=== PATIENT | male | born 1950 | race Caucasian/White ===

== ENCOUNTER 2019-06-17 10:45 | Emergency (ER) | payer MEDICARE, BC ==
[2019-06-17 10:58] VITALS: BP 160/93
--- NOTE | 2019-06-17 11:14 | UC ---
Back Pain HPI - HPI Summary HPI Summary: Patient is a 68-year-old male, history of hypertension, BPH, obesity, here with flank pain. Patient's had 3 weeks of left lower flank pain that radiates into his left testicle. Patient's pain is worse with sitting still and improves with movement. Patient's pain is constant with episodes of worsening pain. Patient's never had pain at this point for. Patient has no fever, chills, vomiting, diarrhea, constipation, weakness, saddle anesthesia, bowel/bladder dysfunction. Patient did have dysuria this morning. Patient has no hematuria. Medications reviewed - History of Current Complaint Chief Complaint: UCGU Stated Complaint: LOWER BACK PAIN Time Seen by Provider: 06/17/19 11:00 Hx Obtained From: Patient Onset/Duration: Gradual Onset Timing: Constant Severity Initially: Mild Severity Currently: Severe Pain Intensity: 9 - Allergies/Home Medications Allergies/Adverse Reactions: Allergies Allergy/AdvReac Type Severity Reaction Status Date / Time No Known Allergies Allergy Verified 06/17/19 10:58 Home Medications: Home Medications Atorvastatin* [Lipitor*] 10 mg PO 1700 06/17/19 [History Confirmed 06/17/19] Terazosin CAP* [Hytrin CAP*] 10 mg PO BEDTIME 06/17/19 [History Confirmed ] PMH/Surg Hx/FS Hx/Imm Hx Previously Healthy: Yes - Surgical History Surgical History: Yes Surgery Procedure, Year, and Place: NO SURGERY TO SINUSES; PARATHYROID GLANDS REMOVED 7 OR 8 YRS AGO DONE AT [facility]; BILAT KNEE SURGERIES ACL, PCL AND MENISCUS REPAIRS DONE AT [address] [place] [address]; 3 MORE SX DONE IN [facility] IN 2003, 2004, AND 2006. TONSILLECTOMY A CHILD. CATARACT SX 2013 DONE AT [facility] BY DR KAY. - Family History Known Family History: Positive: Hypertension - Social History Alcohol Use: Weekly Alcohol Amount: 5 drinks per week Substance Use Type: None Smoking Status (MU): Former Smoker Type: Cigars Amount Used/How Often: OCCASIONAL CIGARS Have You Smoked in the Last Year: Yes When Did the Patient Quit Smoking/Using Tobacco: 2nd week June 2016 - Immunization History Most Recent Influenza Vaccination: 2014 Most Recent Tetanus Shot: UTD Review of Systems All Other Systems Reviewed And Are Negative: Yes Constitutional: Negative: Fever, Chills ENT: Negative: Sore Throat Respiratory: Negative: Shortness Of Breath, Cough Cardiovascular: Negative: Chest Pain Gastrointestinal: Negative: Abdominal Pain, Vomiting, Diarrhea Genitourinary: Positive: Dysuria. Negative: Hematuria, Frequency Physical Exam - Summary Physical Exam Summary: A+Ox3, no distress Eyes: Conjunctiva Clear, PERRL. EOM intact and full ENT: Hearing grossly normal TM x 2 clear, moist, uvula midline, no exudate, no erythema Neck: Positive: Supple Respiratory: Positive: No respiratory distress, No accessory muscle use + CTA throughout no w/r Cardiovascular: RRR nl s1, s2 no m/r CBT <2 sec abd soft + BS nt/nd no guarding, no distension Musculoskeletal Exam: Left lower flank tenderness with no abdominal tenderness. No CVA tenderness. Full strength in the lower extremities. Neurological: Positive: Alert, + sensation throughout Psychological: Positive: Normal Response To Family Skin: no rash, no ecchymosis Triage Information Reviewed: Yes Vital Signs: Initial Vital Signs Temp 98 F 06/17/19 10:52 Pulse 98 06/17/19 10:52 Resp 17 06/17/19 10:52 BP 160/93 06/17/19 10:52 Pulse Ox 100 06/17/19 10:52 Back Pain Course/Dx - Course Course Of Treatment: Patient is here with 3 weeks of left flank pain and one episode of dysuria this morning. Patient had a negative UA for infection and his urine was sent for culture. Patient had a CT scan which showed no evidence of nephrolithiasis or AAA. Patient likely suffering from UTI versus muscle strain. Patient has no red flag symptoms of back pain and does not need an emergent MRI. Patient was treated with antibiotics and prescribed a muscle relaxant. He was instructed to follow-up with his primary care doctor as soon as possible. - Differential Dx/Diagnosis Differential Diagnosis/HQI/PQRI: Aneurysm, Compressive Cord Syndrome, Epidural Abscess, Fracture, Herniated Disc, Other - Nephrolithiasis, UTI Provider Diagnosis: Left flank pain, Complicated UTI (urinary tract infection) Discharge - Sign-Out/Discharge Documenting (check all that apply): Patient Departure All imaging exams completed and their final reports reviewed: Yes - Discharge Plan Condition: Stable Disposition: HOME Prescriptions: Cyclobenzaprine TAB* [Flexeril 10 MG TAB*] 10 mg PO BID PRN #10 tab PRN Reason: Pain - Severe Sulfamethox/Trimethoprim DS* [Bactrim DS 800/160 TAB*] 1 tab PO BID 7 Days #14 tab Patient Education Materials: Urinary Tract Infection in Men (ED), Low Back Strain (ED) Referrals: Niya Javier MD [Primary Care Provider] - Additional Instructions: Please call your urologist for followup Please take your antibiotics Please take Motrin and Tylenol for pain Please take the prescribed muscle relaxant at night if needed for pain Please do not take a muscle relaxant prior to driving or operating heavy machinery Please return if you have fever, difficulty going to the bathroom, blood in your urine, worsening symptoms - Billing Disposition and Condition Condition: STABLE Disposition: Home
[2019-06-17] MEDS ORDERED: Acetaminophen TAB* 325 MG PO ONE (12:11)
[2019-06-17] MEDS ORDERED: Ibuprofen TAB* 600 MG PO ONE (12:11)
== END 2019-06-17 12:25 | disposition home or self-care (01) ==
LOC: UCEAST 10:45
DX: N39.0 Urinary tract infection, site not specified (principal); R10.9 Unspecified abdominal pain; Z87.891 Personal history of nicotine dependence
CPT/HCPCS: 74176; 81002; 87086; 99212; A9270-GY; G0463

== ENCOUNTER 2019-09-04 11:44 | Emergency (ER) | payer MEDICARE, BC ==
[2019-09-04 12:54] VITALS: BP 124/85
--- NOTE | 2019-09-04 13:24 | UC ---
Skin Complaint HPI - HPI Summary HPI Summary: Pt presents to requesting doxy for a tick bite to left side. Pt states thinks tick was present 1-2 days. states was engorged and removed alive. no pain. Pt states in past PCP gives doxy. No fever, chills not immunocompromised medictions reviewed - History of Current Complaint Chief Complaint: UCSkin Time Seen by Provider: 09/04/19 13:21 Stated Complaint: TICK BITE Hx Obtained From: Patient, Family/Activities Volunteer Pain Intensity: 0 - Allergy/Home Medications Allergies/Adverse Reactions: Allergies Allergy/AdvReac Type Severity Reaction Status Date / Time No Known Allergies Allergy Verified 09/04/19 12:47 PMH/Surg Hx/FS Hx/Imm Hx Previously Healthy: Yes - Surgical History Surgical History: Yes Surgery Procedure, Year, and Place: NO SURGERY TO SINUSES; PARATHYROID GLANDS REMOVED 7 OR 8 YRS AGO DONE AT [facility]; BILAT KNEE SURGERIES ACL, PCL AND MENISCUS REPAIRS DONE AT [address] [place] [address]; 3 MORE SX DONE IN [facility] IN 2003, 2004, AND 2006. TONSILLECTOMY A CHILD. CATARACT SX 2013 DONE AT [place] BY DR KAY. Rotator cuff 2014 - Family History Known Family History: Positive: Hypertension, Non-Contributory - Social History Occupation: Retired Lives: With Family Alcohol Use: Weekly Alcohol Amount: 5 drinks per week Substance Use Type: None Smoking Status (MU): Former Smoker Type: Cigars Amount Used/How Often: OCCASIONAL CIGARS Have You Smoked in the Last Year: Yes When Did the Patient Quit Smoking/Using Tobacco: June 2016 - Immunization History Most Recent Influenza Vaccination: 2014 Most Recent Tetanus Shot: UTD Review of Systems All Other Systems Reviewed And Are Negative: Yes Skin: Positive: Other - tick bite wound Physical Exam - Summary Physical Exam Summary: Vital Signs Reviewed: Yes A+Ox3, no distress Eyes: Conjunctiva Clear ENT: Hearing grossly normal neck: supple Respiratory: Positive: No respiratory distress, No accessory muscle use Cardiovascular: skin color reflect adequate perfusion Musculoskeletal Exam: SKELTON x 4 without difficulty Neurological: Positive: Alert, ambulatory without difficulty Psychological: Positive: Normal Response To proivder Skin: Positive: no rash, no ecchymosis left mid scapuluar line 1cm area of erythema with central puncture -under magnification for retained fb no pain Triage Information Reviewed: Yes Vital Signs: Initial Vital Signs Temp 97.6 F 10/26/19 12:49 Pulse 88 09/04/19 12:49 Resp 16 09/04/19 12:49 BP 124/85 09/04/19 12:49 Pulse Ox 98 09/04/19 12:49 Course/Dx - Course Course Of Treatment: pt here with who removed an engorged tick from left upper back earlier today. states was present 1-2 days no pain no sx VSS no retained fb, local irritation will give prophylaxis doxy pt comfortable and in agreement with plan - Diagnoses Provider Diagnosis: Tick bite Discharge ED - Sign-Out/Discharge Documenting (check all that apply): Patient Departure All imaging exams completed and their final reports reviewed: No Studies - Discharge Plan Condition: Stable Disposition: HOME Patient Education Materials: Tick Bite (ED) Referrals: Niya Javier MD [Primary Care Provider] - Additional Instructions: Keep area clean and dry Check yourself daily for ticks after you have been working in the [place] Contact your doctor or return with questions or concerns Approach to prophylaxis : According to the Infectious Diseases Society of [place] (IDSA) guidelines that recommend antibiotic prophylaxis only in patients who meet all of the following criteria: 1. Attached tick identified as an adult or nymphal I. scapularis tick (deer tick). 2. Tick is estimated to have been attached for 36 hours (by degree of engorgement or time of exposure). 3. Prophylaxis is begun within 72 hours of tick removal. Local rate of infection of ticks with B. burgdorferi is 20 percent if attached for over 48 hours (these rates of infection have been shown to occur in parts of [place], parts of the [facility], and parts of [place] and [place]). you were given a prophylatic dose of doxycycline at today's visit. Contact your doctor or return with questions or concerns - Billing Disposition and Condition Condition: STABLE Disposition: Home
[2019-09-04] MEDS ORDERED: DOXYcycline CAP(*) 100 MG PO ONE (13:30)
== END 2019-09-04 13:37 | disposition home or self-care (01) ==
LOC: UCEAST 11:44
DX: S20.462A Insect bite (nonvenomous) of left back wall of thorax, initial encounter (principal); W57.XXXA Bitten or stung by nonvenomous insect and other nonvenomous arthropods, initial encounter; Y92.9 Unspecified place or not applicable; Z87.891 Personal history of nicotine dependence
CPT/HCPCS: 99212; A9270-GY; G0463

== ENCOUNTER 2019-11-26 11:36 | Emergency (ER) | payer MEDICARE, BC ==
--- OUTSIDE RECORDS SUMMARY | 2019-11-26 11:42 | XMS REPORT | Continuity of Care Document ---
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 Onset: 2014 rotator cuff of right shoulder, subsequent encounter Encounter for other orthopedic aftercare Joseph Monroe M.D. Onset: 2015 Social History Type Date Description Comments Sex Unknown ETOH Use Currently consumes alcohol Tobacco Use Start: Unknown cigars Exercise Type/Frequency Does not exercise Allergies, Adverse Reactions, Alerts Description No Known Drug Allergies Medications Active Medications SIG Qnty Indications Ordering Provider Date Bisoprolol Unknown Fumarate/Hydrochlorothiazide 08/15. Vitamin D (Ergocalciferol) Unknown 2000 Medications Administered in Office Medication SIG Qnty Indications Ordering Provider Date Depomedrol 80MG Karl Heath M.D. 06/19/2015 Injection Immunizations Description No Information Available Vital Signs Date Vital Result Comment 02/07/2016 11:18am Height 72 inches 6'0" Weight 370.00 lb Pain Level 0 BMI (Body Mass Index) 50.2 kg/m2 01/04/2016 8:00am Height 72 inches 6'0" Weight 370.00 lb Pain Level 2 BMI (Body Mass Index) 50.2 kg/m2 Results Description No Information Available Procedures Description No Information Available Medical Devices Description No Information Available Encounters Description No Information Available Assessments Description No Information Available Plan of Treatment Future Appointment(s):11/11/2019 9:00 am - Archie Abad M.D. at [facility]02/07/2016 - Joseph Monroe M.D.S46.011D Strain of muscle(s) and tendon(s) of the rotator cuff of right shFollow up:As needed Functional Status Description No Information Available Mental Status Description No Information Available Referrals Description No Information Available
--- OUTSIDE RECORDS SUMMARY | 2019-11-26 11:42 | XMS REPORT | Continuity of Care Document ---
:1950 External Reference #:[id number] Author Name Farncisco Topete, DO FACC (transmitted by agent of provider Diamond Jordan) [facility] [address] 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 Onset: 2014 rotator cuff of right shoulder, subsequent encounter Encounter for other orthopedic aftercare Joseph Monroe M.D. Onset: 2015 Social History Type Date Description Comments Sex Unknown ETOH Use Currently consumes alcohol Tobacco Use Start: Unknown cigars Recreational Drug Use Denies Drug Use Smoking Status Reviewed: 11/26/19 cigars Exercise Type/Frequency Does not exercise Allergies, Adverse Reactions, Alerts Description No Known Drug Allergies Medications Active Medications SIG Qnty Indications Ordering Provider Date Bisoprolol Unknown Fumarate/Hydrochloroth iazide 08/15. Vitamin D Unknown (Ergocalciferol) 2000 Atorvastatin Calcium 1 by mouth Unknown 10mg Mon,Wed. Fri Tablets Xarelto 1 by mouth 90tabs Francisco Topete, 20mg Tablets every day DO FACC Medications Administered in Office Medication SIG Qnty Indications Ordering Provider Date Depomedrol 80MG Karl Heath M.D. 06/19/2015 Injection Immunizations Description No Information Available Vital Signs Date Vital Result Comment 11/26/2019 10:21am Height 72 inches 6'0" Weight 354.00 lb per patient BP Systolic Sitting 110 mmHg lue reg cuff BP Diastolic Sitting 74 mmHg lue reg cuff BP Systolic Standing 112 mmHg lue regcuff BP Diastolic Standing 74 mmHg lue regcuff Respiratory Rate 16 /min BMI (Body Mass Index) 48.0 kg/m2 Ejection Fraction no echo 02/07/2016 11:18am Height 72 inches 6'0" Weight 370.00 lb Pain Level 0 BMI (Body Mass Index) 50.2 kg/m2 Results Description No Information Available Procedures Date Code Description Status 11/26/2019 49387 EKG Tracing & Interpretation Completed Medical Devices Description No Information Available Encounters Type Date Location Provider Dx Diagnosis Office Visit 11/26/2019 [facility] Francisco Topete, I48.91 Unspecified atrial 10:40a Of [facility] DO FACC fibrillation R06.83 Snoring R06.81 Apnea, not elsewhere classified Assessments Date Code Description Provider 11/26/2019 I48.91 Unspecified atrial fibrillation Francisco Topete DO FACC 11/26/2019 R06.83 Snoring Francisco Topete DO FACC 11/26/2019 R06.81 Apnea, not elsewhere classified Francsico Topete DO FACC Plan of Treatment Future Appointment(s):12/10/2019 11:00 am - Francisco Topete DO FACC at [facility]11/26/2019 - Francisco Topete DO [id number] Unspecified atrial fibrillationNew Orders:Echocardiogram, Transesophageal, Ordered: Cardioversion, Ordered: 11/26/19Follow up:schedule DAVID/cardioversion Friday f/u 01/07/2020Friday with EKGR06.83 SnoringNew Orders:Home Sleep Testing, Ordered: 11/26/19R06.81 Apnea, not elsewhere classified Functional Status Description No Information Available Mental Status Description No Information Available Referrals Description No Information Available
--- OUTSIDE RECORDS SUMMARY | 2019-11-26 11:42 | XMS REPORT | Continuity of Care Document ---
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 Problems Active Problems Provider Date Syncope and collapse Karen Avelar ANP Onset: 04/12/2012 Benign essential hypertension Karen Avelar ANP Onset: 04/12/2012 Essential hypertension Niya Javier MD Onset: 10/11/2015 Obesity Niya Javier MD Onset: 10/11/2015 Nocturia Niya Javier MD Onset: 10/11/2015 Hyperlipidemia screening Niya Javier MD Onset: 10/11/2015 Suspected diabetes mellitus Niya Javier MD Onset: 10/11/2015 Encounter for other preprocedural examination Niya Javier MD Onset: 10/11 Vitamin D deficiency Niya Javier MD Onset: 10/11/2015 Shoulder joint pain Niya Javier MD Onset: 10/11/2015 Acute bronchitis Niya Javier MD Onset: 01/29/2016 Hyperlipidemia Niya Javier MD Onset: 04/24/2016 High enzyme level in serum Niya Javier MD Onset: 04/24/2016 Bite of nonvenomous arthropod Niya Javier MD Onset: 07/10/2017 Osteoarthritis of multiple joints Niya Javier MD Onset: 07/10/2017 Tobacco user Niya Javier MD Onset: 08/29/2017 Hyperlipidemia Niya Javier MD Onset: 08/29/2017 Pure hypercholesterolemia Niya Javier MD Onset: 08/29/2017 Impotence of organic origin Niya Javier MD Onset: 02/27/2018 Malaise and fatigue Niya Javier MD Onset: 08/31/2018 Abnormal weight gain Niya Javier MD Onset: 11/23/2018 Chronic conjunctivitis Niya Javier MD Onset: 11/23/2018 Atrial fibrillation Niya Javier MD Onset: 10/27/2019 Social History Type Date Description Comments Sex Unknown Tobacco Use Start: Unknown End: Former Cigarette Smoker 3/4 PPD X TOTAL OF Unknown 15 YRS; no more ETOH Use Drinks 1 Alcoholic Beverage Per Day Recreational Drug Use Never Used Drugs Tobacco Use Start: Unknown End: Patient is a former Unknown smoker Smoking Status Reviewed: 10/27/19 Patient is a former smoker Seat Belt/Car Seat always uses seat belt Guns in Home Yes, Locked Up Smoke Alarms Carbon Monoxide Detector: Yes Allergies, Adverse Reactions, Alerts Description No Known Drug Allergies Medications Active Medications SIG Qnty Indications Ordering Date Provider Xarelto Starter Pack use as directed 51units I48.91 Niya Javier, 2018 15&20mg TBPK Terazosin HCL take one capsule by 30caps N40.1 Niya Javier, 08/31/2018 1mg mouth every morning MD Capsules Atorvastatin Calcium Take 1 Tablet By 36tabs Niya Javier, 08/20/2017 Mouth AT Bedtime On MD 10mg Tablets Friday, Friday And Friday Viagra Take 1/2 - 1 Tablet 10tabs Niya Javier, 07/27/2015 100mg Tablets By Mouth AT Least 1 MD Hour Before [place] Bisoprolol Take 1 Tablet By 90tabs Niya Javier, 06/28/2015 Fumarate/Hydrochloro Mouth Every Day In MD thiazide The Morning 10-6.25mg Tablets Vitamin D-3 2 po qd Unknown 4000Unit Tablets Immunizations CPT Code Status Date Vaccine Lot # 12100 Given 10/27/2019 Pneumovax Injection [id number] 98257 Given 10/27/2019 Influenza High Dose [id number] 12256 Given 08/31/2018 Influenza Virus Vaccine, Quadrivalent, 36 Mos+, [id number] 82060 Given 08/31/2018 Pneumococcal Conjugate Vaccine 13 Valent For [id number] Intramuscular Use 78775 Given 08/29/2017 Influenza High Dose [id number] Q2038 Given 10/11/2015 Influenza Vaccine (Fluzone) Age 3 And Older [id number] 57713 Given 08/25/2003 flu vaccination 26479 Given 09/22/2002 flu vaccination 11581 Given 09/03/2001 flu vaccination 06174 Given 07/07/1996 DT Vaccine Younger Than 7 Yrs Vital Signs Date Vital Result Comment 10/27/2019 1:07pm BP Systolic Sitting Left Arm 124 mmHg BP Diastolic Sitting Left Arm 78 mmHg Body Temperature 97.1 F Heart Rate 92 /min Respiratory Rate 18 /min Height 73 inches 6'1" Weight 370.00 lb BMI (Body Mass Index) 48.8 kg/m2 BSA (Body Surface Area) 2.79 m2 [place] body weight in kilograms 83 kg O2 % BldC Oximetry 97 % 04/19/2019 10:02am BP Systolic 110 mmHg BP Diastolic 70 mmHg Heart Rate 64 /min Respiratory Rate 18 /min Height 73 inches 6'1" Weight 376.00 lb BMI (Body Mass Index) 49.6 kg/m2 BSA (Body Surface Area) 2.81 m2 [place] body weight in kilograms 83 kg O2 % BldC Oximetry 97 % Results Test Acquired Date Facility Test Result H/L Range Note CBC 10/27/2019 [facility] White Blood 6.6 K/uL Normal 3.4-10.5 1 W/Automated [address] [place] [address] [phone] Red Blood Count 4.23 M/uL Normal 4.20-5.80 Hemoglobin 14.4 gm/dL Normal 12.8-17.0 Hematocrit 43.9 % Normal 38.0-48.0 Mean Cell Volume 103.8 fl High 80.0-96.0 Mean Corpuscular HGB 34.0 pg High 27.0-33.0 Mean Corpuscular HGB Conc 32.8 g/dL Normal 31.7-36.0 Platelet Count 171 K/uL Normal 155-360 Red Cell Distri Width SD 50.6 fl Normal 36-51 Red Cell Distri Width %CV 13.2 % Normal 11.6-15.8 Mean Platelet Volume 11.0 fl High 6.6-10.6 Neut% 52.4 % Normal 33.0-73.0 Lymph % 38.0 % Normal 20.0-42.0 [place] % 8.1 % Normal 0.0-10.0 Eo% 0.9 % Normal 0.0-6.6 Bas% 0.3 % Normal 0.0-1.1 Immature Grans 0.3 % Normal 0.0-5.0 NRBC % 0.0 /100WBC < 10/ 100 WBC Neut# 3.48 K/uL Normal 1.8-7.0 Lymph # 2.52 K/uL Normal 1.0-4.0 [place] # 0.54 K/uL Normal 0.0-0.8 Eos # 0.06 K/uL Normal 0.0-0.5 Baso # 0.02 K/uL Normal 0.0-0.1 Immature Grans Absolute 0.02 K/uL NRBC # 0.00 K/uL Laboratory test 10/27/2019 [facility] Prostate 0.34 < 4.[address] Specific ng/[place] [address] Antigen [phone] Comprehensive 10/27/2019 [facility] Glucose 85 mg/dL Normal 74-106 Metabolic Panel [address] [place], [place] [id number] [phone] BUN 19 mg/dL High 7-18 Creatinine 1.1 mg/dL Normal 0.6-1.3 Glom Filtration Rate, Estimate >60 mL/min >60 If >60 mL/min >60 3 BUN/Creat 17.2 ratio Sodium 139 mmol/L Normal 136-145 Potassium 4.5 mmol/L Normal 3.5-5.1 Chloride 107 mmol/L Normal 98-107 Carbon Dioxide 29 mmol/L Normal 21-32 Anion Gap 3 mEq/L Low 8-16 Calcium 9.0 mg/dL Normal 8.5-10.1 Total Protein 7.4 g/dL Normal 6.4-8.2 Albumin 3.8 g/dL Normal 3.4-5.0 Globulin 3.6 g/dL Normal 1.9-4.3 Alb/Glob 1.1 ratio Bilirubin,Total 0.9 mg/dL Normal 0.2-1.0 Sgot/Ast 28 U/L Normal 15-37 SGPT/Alt 37 U/L Normal 12-78 Alkaline Phosphatase 107 U/L Normal 45-117 LDL Cholesterol Profile 10/27/2019 [facility] Cholesterol 156 mg/dL <[address] [place] [address] [phone] Triglycerides 100 mg/dL <150 5 HDL Cholesterol 49 mg/dL >40 6 LDL-Cholesterol 87 mg/dL < 100 7 Laboratory test 10/27/2019 [facility] Vitamin <pending> finding [address] SONIA Alvarado25-Hydroxy [place] Gold [address] [phone] Urine Dipstick 10/27/2019 [facility] Ua Leuko - Negative Ua Nitrite - Negative Ua Urobilinogen .2 0.2 - 1.0 E.U./dL Ua Protein - Negative Ua PH 6 Low 6.5-7.5 Ua Blood - Negative Ua Specific [place] 1.025 1.010-1.030 Ua Ketones - Negative Ua Bilirubin - Negative Ua Glucose - Negative Urine Culture And 06/17/2019 [facility] Urine Culture SEE RESULT 8, 9 Sensitivities [phone] BELOW 1 I10 N40.1 R53.83 E78.5 E55.9 2 THIS ASSAY IS NOT INTENDED A CANCER SCREENING TEST The concentration of PSA in a given specimen, determined with assays from different manufacturers, can vary due to differences in assay methods and reagent specificity. Values obtained from different assay methods cannot be used interchangeably. Method: [employer] [place] Chemiluminescent immunoassay. 3 Note: Persistent reduction for 3 months or more in an eGFR <60 mL/min/1.73 m2 defines CKD. Patients with eGFR values >/=60 mL/min/1.73 m2 may also have CKD if evidence of persistent proteinuria is present. The original MDRD equation for estimated GFR is not valid for patients less than 18 years of age. Additional information may be found at www.kdoqi.org. 4 Reference Guidelines*: Desirable: ........... < 200 mg/dL Borderline High: ..... 200-239 mg/dL High: ................ >= 240 mg/dL * The National Cholesterol Education Program (NCEP) 5 Reference Guidelines*: Normal: ............. < 150 mg/dL Borderline High: .... 150-199 mg/dL High: ............... 200-499 mg/dL Very High: .......... > 500 mg/dL * Source: National Cholesterol Education Program (NCEP) 6 Reference Guidelines*: Low HDL: ..... < 40 mg/dL Normal: ..... 40-60 mg/dL Desirable: ... > 60 mg/dL *The National Cholesterol Education Program(NCEP) 7 Reference Guidelines*: Optimal:........... <100 mg/dL Near Optimal....... 100-129 mg/dL Borderline High.... 130-159 mg/dL High............... 160-189 mg/dL Very High.......... >=190 mg/dL * Source: National Cholesterol Education Program ([facility]) 8 [id number] 9 SEE RESULT BELOW Name: LOUIS CORREA : [address]: Craig Lorenzo MD Acct: [id number] Unit: [id number] AGE: 68 Location: [facility] Re06/17/19 SEX: M Status: DEP ER SPEC: [id number] CHARLENE: 06/17/19-[address]: Craig Lorenzo MD REQ: [id number] RECD: 06/17/19 STATUS: COMP ED DR: Niya Javier MD _ SOURCE: URINE SPDESC: ORDERED: Urine Culture COMMENTS: [id number] QUERIES: Urine Source: Random Procedure Result Reported Site Urine Culture Final 06/18/19- 1620 ML No growth of clinically significant organisms * ML - Main Lab . END OF REPORT DEPARTMENT OF PATHOLOGY, [address] [place] [address] Nathan Anthony M.D. Director [facility] # [id number] Procedures Date Code Description Status 10/27/2019 77355 EKG-Tracing And Report Completed 11/10/2009 67602256 Colonoscopy Completed Medical Devices Description No Information Available Encounters Type Date Location Provider Dx Diagnosis Office Visit 10/27/2019 Family Medicine Niya Javier, Z00.00 Encntr for general 1:30p Dante CANO MD adult medical exam w/o abnormal findings I48.91 Unspecified atrial fibrillation N40.1 Benign prostatic hyperplasia with lower urinary tract symp I10 Essential (primary) hypertension E78.5 Hyperlipidemia, unspecified Assessments Date Code Description Provider 10/27/2019 Z00.00 Encounter for general adult medical examination Niya Javier MD without abnormal findings 10/27/2019 I48.91 Unspecified atrial fibrillation Niya Javier MD 10/27/2019 N40.1 Benign prostatic hyperplasia with lower urinary Niya Javier MD tract symptoms 10/27/2019 I10 Essential (primary) hypertension Niya Javier MD 10/27/2019 E78.5 Hyperlipidemia, unspecified Niya Javier MD Plan of Treatment Future Appointment(s):12/06/2019 10:15 am - Niya Javier MD at [facility] RD10/27/2019 - Niya Javier MDZ00.00 Encounter for general adult medical examination without abnormal findingsComments:INCREASE DAILY EXERCISE SO YOU DON'T GET WINDED DRAGGING DEAR HOME.; CONTINUE TO LOSE WEIGHT; SUNSCREEN TO AVOID SKIN CANCER; CALCIUM AND VIT. D: ORDERED IN GENERAL LABS; IMMUNIZATIONS : FLU SHOT AND PNEUMONIA VACCINE TODAY, THEN YOU'RE UP TO DATE.PSA ,COLON CA SCREENING , ETC. DISCUSSED AND DOCUMENTEDIN PREVENTIVE SCREEN.YEARLY LABS TO BE DONE TODAY.HEALTH CARE PROXY IN CHART ADL'S, IADL'S: YOU ARE SAFE AT HOME.I48.91 Unspecified atrial fibrillationNew Medication: Xarelto Starter Pack 15&20 mg - use as directedComments:re-start bisoprolol for rate control;begin xarelto as an anticoagulant.You need to see a economic consultant right away to find out if something more is going on. Someone from here will call you tomorrow.Referral:Tucker Young M.D., SpecialistFollow up: Fri40.1 Benign prostatic hyperplasia with lower urinary tract symptomsComments :CONTINUE TERAZOSIN. TOMORROW YOU'RE SEEING THE UROLOGIST, SO HE MAY DECIDE TO INCREASE YOUR TERAZOSIN SINCE YOU'RE HAVING TO GET UP SO OFTEN AT NIGHT. I HAVE ORDERED PSA AND WILL SEND HIM A COPY OF YOUR LABS.I10 Essential (primary) hypertensionComments:WATCH SALT; CONT. WITH SAME MEDICAL REGIME AND CHECK BP REGULARLYREGULAR EXERCISE IS THORNE.Follow up:6 MOE78.5 Hyperlipidemia, unspecifiedComments:CHECK FASTING LIPIDS; CONT. ON SAME MEDS PENDING RESULTS; FOLLOW LOW-CHOL. DIET, REG. EXERCISE Functional Status Functional Condition Comment Date Status Independent with all ADL's Active Partial upper dentures Active Independent with all IADL's Active Glasses Active Mental Status Description No Information Available Referrals Refer to Dr Reason for Referral Status Appt Date Tucker Young M.D. new onset a. fib. if he can't get in with drAmy Sent xiomara, then dr. glass or dr. Abad [address] [place] [address] [phone]
[2019-11-26 12:35] VITALS: BP 133/73
--- NOTE | 2019-11-26 14:41 | UC ---
Throat Pain/Nasal [place] HPI - HPI Summary HPI Summary: 69-year-old male presents with complaints of 4 week history of nasal congestion , runny nose, sinus pressure, and occasional sore throat. States over the past week symptoms have progressively worsened and now has a productive cough for green sputum. States he is scheduled for a cardioversion procedure for his A- fib on 12/10/2019. Denies fever, chills, ear pain, dysphagia, chest pain, or shortness of breath. - History of Current Complaint Chief Complaint: UCRespiratory Stated Complaint: COLD SYMPTOMS/CONGESTION Time Seen by Provider: 11/26/19 13:13 Hx Obtained From: Patient Pain Intensity: 4 - Allergies/Home Medications Allergies/Adverse Reactions: Allergies Allergy/AdvReac Type Severity Reaction Status Date / Time No Known Allergies Allergy Verified 11/26/19 12:36 Home Medications: Home Medications Rivaroxaban [Xarelto] 1 tab PO DAILY 11/26/19 [History Confirmed 11/26/19] PMH/Surg Hx/FS Hx/Imm Hx Endocrine History: Dyslipidemia Cardiovascular History: Hypertension, Atrial Fibrillation - Surgical History Surgical History: Yes Surgery Procedure, Year, and Place: NO SURGERY TO SINUSES; PARATHYROID GLANDS REMOVED 7 OR 8 YRS AGO DONE AT [facility]; BILAT KNEE SURGERIES ACL, PCL AND MENISCUS REPAIRS DONE AT [address] [place] [address]; 3 MORE SX DONE IN [facility] IN 2003, 2004, AND 2006. TONSILLECTOMY A CHILD. CATARACT SX 2012 DONE AT [facility] BY DR KAY. Rotator cuff 2014 - Family History Known Family History: Positive: Hypertension - Social History Occupation: Retired Lives: With Family Alcohol Use: Occasionally Alcohol Amount: 5 drinks per week Substance Use Type: None Smoking Status (MU): Former Smoker Type: Cigars Amount Used/How Often: OCCASIONAL CIGARS Have You Smoked in the Last Year: Yes When Did the Patient Quit Smoking/Using Tobacco: June 2016 - Immunization History Most Recent Influenza Vaccination: 2015 Most Recent Tetanus Shot: UTD Review of Systems All Other Systems Reviewed And Are Negative: Yes Constitutional: Negative: Fever, Chills Eyes: Negative: Drainage, Eye Redness ENT: Positive: Nasal Discharge, Sinus Congestion, Sinus Pain/Tenderness. Negative: Sore Throat, Ear Ache Respiratory: Positive: Cough. Negative: Shortness Of Breath Cardiovascular: Negative: Palpitations, Chest Pain Gastrointestinal: Negative: Abdominal Pain, Vomiting, Diarrhea, Nausea Genitourinary: Positive: Negative Musculoskeletal: Positive: Negative Neurological: Positive: Negative Is Patient Immunocompromised?: No Physical Exam - Summary Physical Exam Summary: GENERAL APPEARANCE: Alert and cooperative obese male who appears to be in no acute distress. EYES: Conjunctiva clear. No drainage. EARS: External auditory canals and tympanic membranes clear, hearing grossly intact. NOSE: Moderate nasal congestion. No nasal discharge. Maxillary sinus tenderness. THROAT: Pharyngeal cobblestoning. No tonsilar inflammation, swelling, exudate, or lesions. Uvula midline. NECK: Neck supple, non-tender without lymphadenopathy. CARDIAC: Normal S1 and S2. No S3, S4 or murmurs. Rhythm is irregularly irregular. There is no peripheral edema, cyanosis or pallor. Extremities are warm and well perfused. Capillary refill is less than 2 seconds. Peripheral pulses intact. LUNGS: Clear to auscultation without rales, rhonchi, wheezing or diminished breath sounds. Loose, productive cough. ABDOMEN: Positive bowel sounds. Soft, nondistended, nontender. No guarding or rebound. No masses or hepatosplenomegally. MUSKULOSKELETAL: ROM intact to all extremities. No joint erythema or tenderness. Normal muscular development. Normal gait. SKIN: Skin normal color, texture and turgor with no lesions or eruptions. Triage Information Reviewed: Yes Vital Signs: Initial Vital Signs Temp 97.8 F 11/26/19 12:33 Pulse 74 11/26/19 12:33 Resp 18 11/26/19 12:33 BP 133/73 11/26/19 12:33 Pulse Ox 96 11/26/19 12:33 Vital Signs Reviewed: Yes Diagnostics - Radiology No standard instances Radiology Interpretation Completed By: Radiologist Summary of Radiographic Findings: Order Information: CHEST PA LAT 2 VWS. INDICATION: Cough. COMPARISON: There are no relevant prior studies available for comparison. TECHNIQUE: Dual-energy PA and lateral views of the chest were obtained. FINDINGS: The lungs are clear. There is no pleural effusion. The cardiomediastinal silhouette is within normal limits. The upper abdominal contents are normal. Osseous structures are unremarkable. IMPRESSION: No acute cardiopulmonary process by radiograph Throat Pain/Nasal Course/Dx - Course Course Of Treatment: 69-year-old male presents with complaints of 4 week history of nasal congestion , runny nose, sinus pressure, and occasional sore throat. States over the past week symptoms have progressively worsened and now has a productive cough for green sputum. States he is scheduled for a cardioversion procedure for his A- fib on 12/10/2019. Denies fever, chills, ear pain, dysphagia, chest pain, or shortness of breath. He is afebrile. Vital signs stable. Patient had moderate nasal congestion, maxillary sinus tenderness, normal TMs, pharyngeal cobblestoning without tonsillar swelling or exudate, clear bilateral breath sounds, loose, productive cough, and otherwise unremarkable exam. Chest x-ray showed no acute cardiopulmonary pathology. Results are reviewed with the patient. Considering the duration and worsening of symptoms I'll treat the patient for an upper respiratory infection with Augmentin 875 mg twice a day 10 days as well as symptomatic treatment including fluticasone nasal spray and Tessalon Perles as needed for cough. He is to follow-up with his primary care provider in 3-5 days if symptoms are not improving. Anticipatory guidance warning symptoms reviewed with the patient. Verbalizes understanding and agrees with plan of care. - Differential Dx/Diagnosis Differential Diagnosis/HQI/PQRI: Sinusitis, URI, Other - Bronchitis, pneumonia Provider Diagnosis: URI with cough and congestion Discharge ED - Sign-Out/Discharge Documenting (check all that apply): Patient Departure All imaging exams completed and their final reports reviewed: Yes - Discharge Plan Condition: Stable Disposition: HOME Prescriptions: Amoxicillin/Clavulanate TAB* [Augmentin TAB 875*] 875 mg PO BID 10 Days #20 tab Benzonatate CAP* [Tessalon 100 MG CAP*] 100 mg PO TID PRN #21 cap PRN Reason: Cough Fluticasone NASAL SPRAY 50MCG* [Flonase NASAL SPRAY 50MCG*] 2 spray BOTH NARES DAILY #1 btl Patient Education Materials: Upper Respiratory Infection (ED) Referrals: Niya Javier MD [Primary Care Provider] - 3 Days Additional Instructions: The chest x-ray performed in the clinic today was normal. Your history and exam are consistent with an upper respiratory infection. Considering the duration and worsening of your symptoms we will start you on an antibiotic. Start Augmentin 875 mg twice a day for 10 days. Take with food to avoid upset stomach. Be sure to complete the entire course even if feeling better. Use a saline rinse kit such as Neti Pot or NeilMed at least twice a day to help thin secretions and promote drainage of the sinuses. Use fluticasone (Flonase) nasal spray 2 sprays each nostril once daily. Take Tessalon Perles 1 capsule every 8 hours as needed for cough. Take over the counter acetaminophen (Tylenol) or ibuprofen (Advil, Motrin) according to directions as needed for pain or fever. Follow up with your primary care provider in 3-5 days if symptoms persist. Seek immediate medical attention in the emergency room if you have fever greater than 100.5 F despite taking acetaminophen or ibuprofen, have chest pain , difficulty breathing, are unable to swallow, or have any worsening of symptoms. - Billing Disposition and Condition Condition: STABLE Disposition: Home
== END 2019-11-26 15:00 | disposition home or self-care (01) ==
LOC: UCEAST 11:36
DX: J06.9 Acute upper respiratory infection, unspecified (principal); R05 Cough; R09.81 Nasal congestion; I48.91 Unspecified atrial fibrillation; I10 Essential (primary) hypertension; Z79.01 Long term (current) use of anticoagulants; Z87.891 Personal history of nicotine dependence
CPT/HCPCS: 71046; 99212; G0463

== ENCOUNTER 2023-04-13 23:56 | Inpatient (IN) ==
[2023-04-14 00:51] LABS: ABS Lymphocytes 0.3 10^3/uL (1.0-4.8); ABS Monocytes 0.4 10^3/uL (0.0-1.1); ABS Neutrophils 4.2 10^3/uL (1.5-7.6); ABS Nucleated RBC 0.01 10^3/ul; Hematocrit 36.5 % (38-53); Hemoglobin 12.7 g/dL (13.2-16.3); Lymphocyte % 6.6 %; Mean Corpuscular Hemoglobin 34.5 pg (27-33); Mean Corpuscular Hgb Conc 34.8 g/dL (31-36); Mean Platelet Volume 9.2 fL (7.5-11.2); Nucleated Red Blood Cells % 0.1 /100 WBC (0.0-0.4); Platelet Count 100 10^3/uL (150-450); Red Blood Count 3.69 10^6/uL (4.06-5.63); Red Cell Distribution Width 15.2 % (12-17); White Blood Count 4.9 10^3/uL (3.6-10.2)
[2023-04-14 00:56] LABS: Albumin 3.8 g/dL (3.2-5.2); Albumin/Globulin Ratio 1.3 (1-3); Calcium 8.7 mg/dL (8.6-10.3); Creatinine, Serum 1.26 mg/dL (0.67-1.17); Globulin 2.9 g/dL (2-4); Potassium 4.1 mmol/L (3.5-5.0); Total Bilirubin 1.1 mg/dL (0.2-1.0); Total Protein 6.7 g/dL (6.4-8.9); eGFR CKD-EPI 61.4 (>60)
[2023-04-14] MEDS ORDERED: Iohexol 350 (CONTRAST) 500 ML MDV IV ONE (01:19)
[2023-04-14 03:05] LABS: Urine Appearance Cloudy; Urine Bilirubin Negative (Negative); Urine Blood 2+ (Negative); Urine Color Yellow; Urine Glucose Negative (Negative); Urine Ketones Negative (Negative); Urine Nitrite Negative (Negative); Urine Protein Negative (Negative); Urine Specific Gravity 1.018 (1.002-1.030); Urine Urobilinogen Negative (Negative)
[2023-04-14 03:14] LABS: Urine Bacteria Absent (Absent); Urine Red Blood Cell 1+(3-5/hpf) (Absent); Urine White Blood Cell Trace(0-5/hpf) (Absent)
[2023-04-14] MEDS ORDERED: HYDROcodone/ACETAMIN 5/325 mg TAB PO ONE (04:19)
[2023-04-14 09:28] LABS: C Reactive Protein 35.81 mg/L (<8.01)
[2023-04-14 10:02] LABS: Urine Osmo 857 mOsm/kg (150-1150)
[2023-04-14] MEDS ORDERED: Senna TAB 8.6 mg TAB PO PRN (11:28)
[2023-04-14] MEDS ORDERED: Magnesium Hydroxide LIQ 30 ML UDC PO PRN (11:28)
[2023-04-14 11:32] LABS: % Iron Saturation 7 % (15-55); .Transferrin 205 mg/dL (203-362); Iron < 20 ug/dL (50-212); Total Iron Binding Capacity 287 mcg/dL (250-450); Unsaturated Iron Binding 267 ug/dL
[2023-04-14 11:41] LABS: Osmolality Serum 276 mOsm/kg (275-295)
[2023-04-14 11:55] LABS: Folate 13.11 ng/mL (5.90-24.80)
[2023-04-14 11:56] LABS: Vitamin B12 459 pg/mL (180-914)
[2023-04-14] MEDS ORDERED: Triamcinolone Acetonide 40 mg VIAL 40 mg/ml 1 ml VIAL INTRAARTIC ONE (12:34)
[2023-04-14 12:43] LABS: Ferritin 1556.6 ng/mL (24-336)
[2023-04-14 14:26] LABS: TSH Ultra Thyroid Stim Horm 0.98 mcIU/mL (0.34-5.60)
[2023-04-14 15:01] LABS: Body Fluid WBC 5647 /mcL
[2023-04-14 15:03] LABS: Body Fluid Appearance Bloody; Body Fluid Color Red; Body Fluid Source Synovial Fluid
[2023-04-14 15:33] LABS: Body Fluid Mono 24 %; Body Fluid Total Cells Counted 200
[2023-04-14] MEDS: Ure-Na 15 GM POWD.PACK PO SCH (18:28)
[2023-04-14] MEDS ORDERED: Piperacillin/Tazobac ADVAN 3.375 GM in NS 0.9% 100 ml BAG 100 ML IV ONE (21:41)
[2023-04-14] MEDS ORDERED: Zosyn per Pharmacy NOTE FOLLOW UP SCH (22:00)
[2023-04-15] MEDS ORDERED: ZOSYN 3.375 GM Q8H per EXTENDED INFUSION IV SCH (02:00)
[2023-04-15 06:27] LABS: Hematocrit 38.7 % (38-53); Hemoglobin 13.2 g/dL (13.2-16.3); Mean Corpuscular Hemoglobin 33.3 pg (27-33); Mean Corpuscular Volume 98.1 fL (80-97); Red Blood Count 3.95 10^6/uL (4.06-5.63); Red Cell Distribution Width 14.6 % (12-17); White Blood Count 3.3 10^3/uL (3.6-10.2)
[2023-04-15 06:44] LABS: Albumin 3.6 g/dL (3.2-5.2); Albumin/Globulin Ratio 1.4 (1-3); Calcium 8.8 mg/dL (8.6-10.3); Creatinine, Serum 1.16 mg/dL (0.67-1.17); Globulin 2.6 g/dL (2-4); Magnesium 1.9 mg/dL (1.9-2.7); Potassium 4.3 mmol/L (3.5-5.0); Total Bilirubin 1.1 mg/dL (0.2-1.0); Total Protein 6.2 g/dL (6.4-8.9); eGFR CKD-EPI 67.8 (>60)
[2023-04-15] MEDS ORDERED: Vancomycin per Pharmacy 1 EA NOTE FOLLOW UP PRN (06:54)
[2023-04-15] MEDS ORDERED: Vancomycin 1,500 MG in NS 0.9% 250 ml 250 ML IVPB SCH (07:00)
[2023-04-15] MEDS ORDERED: Vancomycin 2,000 MG in NS 0.9% 500 ml BAG 500 ML IVPB ONE (07:00)
[2023-04-15 08:57] LABS: ABS Lymphocytes 0.4 10^3/uL (1.0-4.8); ABS Monocytes 0.3 10^3/uL (0.0-1.1); ABS Neutrophils 2.6 10^3/uL (1.5-7.6); ABS Nucleated RBC 0.01 10^3/ul; Lymphocyte % 12.8 %; Mean Platelet Volume 9.7 fL (7.5-11.2); Nucleated Red Blood Cells % 0.2 /100 WBC (0.0-0.4); Platelet Count 51 10^3/uL (150-450)
[2023-04-15] MEDS: cefTRIAXone 2 gm/50 mL D5W 2 GM/50 ML BAG IV SCH (09:24)
[2023-04-15] MEDS: Ure-Na 15 GM POWD.PACK PO SCH (09:25)
[2023-04-15] MEDS ORDERED: Magnesium Sulfate IV 1GM/100ML 1 GM/100 ML BAG IV ONE (15:22)
[2023-04-15] MEDS ORDERED: Vancomycin 1000 MG in NS 0.9% 250 ML IVPB SCH (22:00)
[2023-04-16 06:23] LABS: ABS Lymphocytes 0.6 10^3/uL (1.0-4.8); ABS Monocytes 0.2 10^3/uL (0.0-1.1); ABS Neutrophils 1.8 10^3/uL (1.5-7.6); Hematocrit 35.8 % (38-53); Hemoglobin 12.5 g/dL (13.2-16.3); Lymphocyte % 22.1 %; Mean Corpuscular Hgb Conc 34.8 g/dL (31-36); Mean Corpuscular Volume 97.6 fL (80-97); Mean Platelet Volume 10.6 fL (7.5-11.2); Nucleated Red Blood Cells % 0.1 /100 WBC (0.0-0.4); Platelet Count 36 10^3/uL (150-450); Red Blood Count 3.67 10^6/uL (4.06-5.63); Red Cell Distribution Width 14.9 % (12-17); White Blood Count 2.6 10^3/uL (3.6-10.2)
[2023-04-16 06:35] LABS: Albumin 3.2 g/dL (3.2-5.2); Albumin/Globulin Ratio 1.1 (1-3); Calcium 8.6 mg/dL (8.6-10.3); Creatinine, Serum 1.04 mg/dL (0.67-1.17); Globulin 2.8 g/dL (2-4); Magnesium 1.9 mg/dL (1.9-2.7); Potassium 3.8 mmol/L (3.5-5.0); Total Bilirubin 0.7 mg/dL (0.2-1.0); eGFR CKD-EPI 77.2 (>60)
[2023-04-16] MEDS ORDERED: Magnesium Sulfate IV 1GM/100ML 1 GM/100 ML BAG IV ONE (06:55)
[2023-04-16] MEDS: cefTRIAXone 2 gm/50 mL D5W 2 GM/50 ML BAG IV SCH (07:14)
[2023-04-16 07:58] LABS: Corrected Retic Count 1.1 % (0.5-1.5); Hematocrit for Retic CNT 36.5 % (38-53)
[2023-04-16] MEDS ORDERED: Azithromycin 500 mg/250 ml NS 500 MG/250 ML BAG IVPB SCH (08:00)
[2023-04-16] MEDS: Ure-Na 15 GM POWD.PACK PO SCH (08:57)
[2023-04-16 09:20] LABS: RBC Parasite Smear No Parasites Seen (No Parasite)
[2023-04-16] MEDS: KCL 10 MEQ/50 ML IVPREMIX 10 MEQ/50 ML BAG IV SCH ×2 (09:27→11:12)
[2023-04-16] MEDS: DOXYcycline 100 MG in NS 0.9% 250 ml 250 ML IVPB SCH ×2 (14:58→22:11)
[2023-04-17 05:57] LABS: Hematocrit 35.6 % (38-53); Hemoglobin 12.2 g/dL (13.2-16.3); Mean Corpuscular Hemoglobin 33.8 pg (27-33); Mean Corpuscular Hgb Conc 34.4 g/dL (31-36); Mean Corpuscular Volume 98.4 fL (80-97); Mean Platelet Volume 10.8 fL (7.5-11.2); Platelet Count 38 10^3/uL (150-450); Red Blood Count 3.62 10^6/uL (4.06-5.63); Red Cell Distribution Width 14.7 % (12-17); White Blood Count 3.5 10^3/uL (3.6-10.2)
[2023-04-17 06:12] LABS: Albumin 3.1 g/dL (3.2-5.2); Albumin/Globulin Ratio 1.1 (1-3); Calcium 8.6 mg/dL (8.6-10.3); Creatinine, Serum 0.89 mg/dL (0.67-1.17); Globulin 2.7 g/dL (2-4); Magnesium 1.9 mg/dL (1.9-2.7); Total Bilirubin 0.6 mg/dL (0.2-1.0); Total Protein 5.8 g/dL (6.4-8.9); eGFR CKD-EPI 92.2 (>60)
[2023-04-17 08:41] LABS: RBC Morphology Normal (Normal)
[2023-04-17 08:42] LABS: ABS Lymphocytes 1.8 10^3/uL (1.0-4.8); ABS Monocytes 0.4 10^3/uL (0.0-1.1); ABS Neutrophils 1.3 10^3/uL (1.5-7.6); ABS Nucleated RBC 0.01 10^3/ul; Eosinophil % 0.1 %; Nucleated Red Blood Cells % 0.2 /100 WBC (0.0-0.4)
[2023-04-17] MEDS: Ure-Na 15 GM POWD.PACK PO SCH (09:05)
[2023-04-17] MEDS ORDERED: Vancomycin Trough Check NOTE FOLLOW UP ONE (09:30)
[2023-04-17 18:38] LABS: B. burgdorferi PCR Negative (Negative); B. garinii/B. afzellii PCR Negative (Negative); Lyme Disease Source SYNOVIAL FLUID
[2023-04-18 06:07] LABS: Hematocrit 34.7 % (38-53); Hemoglobin 11.9 g/dL (13.2-16.3); Mean Corpuscular Hemoglobin 33.8 pg (27-33); Mean Corpuscular Hgb Conc 34.4 g/dL (31-36); Mean Corpuscular Volume 98.2 fL (80-97); Mean Platelet Volume 11.5 fL (7.5-11.2); Platelet Count 59 10^3/uL (150-450); Red Blood Count 3.54 10^6/uL (4.06-5.63); Red Cell Distribution Width 14.8 % (12-17); White Blood Count 4.5 10^3/uL (3.6-10.2)
[2023-04-18 06:30] LABS: Calcium 8.9 mg/dL (8.6-10.3); Creatinine, Serum 0.88 mg/dL (0.67-1.17); eGFR CKD-EPI 92.5 (>60)
[2023-04-18 09:52] LABS: RBC Morphology Normal (Normal)
[2023-04-18 09:53] LABS: ABS Lymphocytes 2.9 10^3/uL (1.0-4.8); ABS Monocytes 0.3 10^3/uL (0.0-1.1); ABS Neutrophils 1.2 10^3/uL (1.5-7.6); ABS Nucleated RBC 0.01 10^3/ul; Eosinophil % 0.3 %; Lymphocyte % 65.2 %; Nucleated Red Blood Cells % 0.3 /100 WBC (0.0-0.4)
[2023-04-18 11:26] VITALS: BP 102/66
[2023-04-18 17:22] LABS: Anaplasma phagocytophilum Positive (Negative); B. miyamotoi PCR, B Negative (Negative); Babesia divergens/MO-1 Negative (Negative); Babesia ducani Negative (Negative); Ehrlichia chaffeensis Negative (Negative); Ehrlichia ewingii/canis Negative (Negative); Ehrlichia muris eauclairensis Negative (Negative)
== END 2023-04-18 14:10 | disposition home or self-care (01) | DRG 872 ==
LOC: EDHOLD 23:56 → ED 23:56 → SUATTDRO 04-14 09:03 → MEDTELE 04-14 09:54
PROVIDERS: ADMIT Internal Medicine; ATTEND Internal Medicine

== ENCOUNTER 2024-11-16 13:49 | Observation (INO) ==
[~2024-11-16 13:49] MED LIST: NS 0.45% 1000 ml BAG 1,000 ML IV SCH; Naloxone 0.4 mg VIAL 0.4 mg/ml 1 ml VIAL IV PRN; Ondansetron 4 mg VIAL 2 MG/ML 2 ml VIAL IV PRN
[2024-11-16] MEDS ORDERED: Lidocaine 2% PF 5 ML VIAL ONE ×2 (14:35→17:18)
[2024-11-16] MEDS ORDERED: ceFAZolin 2 GM PREMIX 2 GM/50 ML BAG ONE (14:36)
[2024-11-16] MEDS ORDERED: Tranexamic Acid 1 GM/100ML BAG 2,000 MG/200 ML BAG IV ONE (14:36)
[2024-11-16 14:41] LABS: Rapid COVID-19 Molecular Undetected (Undetected)
[2024-11-16] MEDS ORDERED: fentaNYL 100 mcg/2 ml 50 MCG/ML VIAL ONE ×3 (15:15→19:52)
[2024-11-16] MEDS ORDERED: Midazolam 5 mg/5 ml VIAL 1 mg/ml 5 ml VIAL (5 mg) ONE (15:15)
[2024-11-16] MEDS ORDERED: ROPIVACAINE 5 MG/ML 30 ML BTL (0.5%) ONE ×2 (15:15→15:48)
[2024-11-16] MEDS: Lactated Ringers 1000 ml BAG 1,000 ML IV SCH ×2 (15:19→21:31)
[2024-11-16] MEDS ORDERED: Propofol 10 MG/ML 20 ML BTL ONE (16:26)
[2024-11-16] MEDS ORDERED: Rocuronium 50 mg VIAL 10 mg/ml 5 ml VIAL (50 mg) ONE ×2 (16:27→17:18)
[2024-11-16] MEDS ORDERED: ceFAZolin 1 GM in Dextrose 1 GM/50 ML BAG ONE (16:40)
[2024-11-16] MEDS ORDERED: Lactulose 30 ml UDC PO PRN (16:58)
[2024-11-16] MEDS ORDERED: Ondansetron 4 mg VIAL 2 MG/ML 2 ml VIAL IV PRN (16:58)
[2024-11-16] MEDS ORDERED: Calcium Carb (TUMS) 500 mg CHEW TAB PO PRN (16:58)
[2024-11-16] MEDS ORDERED: Morphine 2 MG/ML SYRINGE IV PRN (16:58)
[2024-11-16] MEDS ORDERED: Magnesium Hydroxide LIQ 30 ML UDC PO PRN (16:58)
[2024-11-16] MEDS ORDERED: Ondansetron ODT 4 mg TAB 4 MG TAB PO PRN (16:58)
[2024-11-16] MEDS ORDERED: ceFAZolin *3* GM in NS PREMIX 3 GM/100 ML BAG IV SCH (17:00)
[2024-11-16] MEDS ORDERED: fentaNYL 250 mcg/5 ml 50 MCG/ML 5 ml VIAL (250 MCG) ONE (17:18)
[2024-11-16] MEDS ORDERED: Ondansetron 4 mg VIAL 2 MG/ML 2 ml VIAL ONE (17:34)
[2024-11-16] MEDS ORDERED: Dexamethasone IV 4 MG/ML VIAL 1 ml VIAL ONE (17:34)
[2024-11-16] MEDS: fentaNYL 100 mcg/2 ml 50 MCG/ML VIAL IV PRN (19:28)
[2024-11-17] MEDS: Acetaminophen IV 1 GM/100ML 1,000 MG/100 ML BAG IV ONE (00:46)
[2024-11-17] MEDS: Magnesium Hydroxide LIQ 30 ML UDC PO SCH (00:46)
[2024-11-17] MEDS: Buffered Lidocaine 1% SYRIN 1 ml INTRADERM ONE (00:46)
[2024-11-17] MEDS: ceFAZolin 2 GM PREMIX 2 GM/50 ML BAG IV SCH (00:53)
[2024-11-17] MEDS: ceFAZolin 1 GM in Dextrose 1 GM/50 ML BAG IVPB SCH (02:34)
[2024-11-17 06:06] LABS: Hematocrit 34.1 % (38-53); Hemoglobin 11.8 g/dL (13.2-16.3); Mean Platelet Volume 9.4 fL (7.5-11.2); Platelet Count 134 10^3/uL (150-450)
[2024-11-17 06:54] LABS: Calcium 8.4 mg/dL (8.6-10.3); Creatinine, Serum 0.99 mg/dL (0.67-1.17); Potassium 4.5 mmol/L (3.5-5.0); eGFR CKD-EPI 80.9 (>60)
[2024-11-17] MEDS: Vitamin THERAPEUTIC TAB PO SCH (08:50)
[2024-11-17] MEDS: Lactated Ringers 1000 ml BAG 500 ML IV ONE (11:38)
[2024-11-17 13:36] LABS: High Sensitivity Troponin 1 Hr 4 pg/mL (<20)
[2024-11-18 05:30] LABS: Hematocrit 29.5 % (38-53); Hemoglobin 9.9 g/dL (13.2-16.3); Mean Platelet Volume 9.5 fL (7.5-11.2); Platelet Count 118 10^3/uL (150-450)
[2024-11-18 09:51] VITALS: BP 117/81
== END 2024-11-18 12:30 | disposition home or self-care (01) ==
LOC: SSU 13:49 → OR 13:49
PROVIDERS: ADMIT Orthopaedic Surgery Adult Reconstructive Orthopaedic Surgery; ATTEND Orthopaedic Surgery Adult Reconstructive Orthopaedic Surgery